=== PATIENT | male | born 1940 | race Caucasian/White ===

== ENCOUNTER 2019-03-14 16:03 | Emergency (ER) | payer OTHER ==
--- OUTSIDE RECORDS SUMMARY | 2019-03-14 16:07 | XMS REPORT ---
:1940 [facility] Organization [facility] Address [address] [place] [address] Dr. Raya [address] [place] [id number] Care Team Providers Name Role Phone Unavailable Unavailable Unavailable Problems This patient has no known problems. Allergies, Adverse Reactions, Alerts This patient has no known allergies or adverse reactions. Medications This patient has no known medications.
--- NOTE | 2019-03-14 16:39 | RAD REPORT ---
EXAM DESCRIPTION: Claudia Pa And Lat (2 Views)03/14/2019 4:32 pm CLINICAL HISTORY: Cough COMPARISON: 2018 FINDINGS: A pectus deformity. Mild left basilar opacities Right lung is clear. Heart is normal size IMPRESSION: Mild left basilar opacities probably pneumonia
[2019-03-14] MEDS ORDERED: IPRATROPIUM BROM 0.5MG/2.5ML ONE (17:12)
[2019-03-14] MEDS ORDERED: METHYLPREDNISOLONE 125 MG INJ ONE (17:12)
[2019-03-14] MEDS ORDERED: LEVALBUTEROL 1.25 MG/3 ML NEB ONE (17:12)
[2019-03-14 17:20] LABS: Absolute Lymphocytes (CBC) 1.2 K/uL (0.7-4.9); Basophils % 0.7 % (0-1.3); Hematocrit 46.3 % (39.6-49.0); Lymphocytes % 14.2 % (15.3-44.8); MPV 8.5 fL (7.6-11.3); RBC Red Blood Cell Count 5.15 M/uL (4.33-5.43)
[2019-03-14 17:34] LABS: Potassium 3.6 mmol/L (3.5-5.1)
--- NOTE | 2019-03-14 17:53 | EDPHYS ---
Physician Documentation [facility] Name: Nile Vazquez Age: 79 yrs Sex: Male : 1940 Arrival Date: 03/14/2019 Time: 16:07 Bed 7 Private MD: Hamzah Dutta R ED Physician Flaco Graham HPI: 03/14 16:38 This 79 yrs old Male presents to ER via Ambulatory with complaints of Cough, kb Breathing Difficulty. 16:38 Pt reports cough and congestion for 5 days. States he was seen by Dr Dutta on Tuesday kb and diagnosed with bronchitis, put on augmentin. Reports he has been coughing up a lot of yellow mucus and it sometimes clogs his airway and makes him have trouble breathing. . 16:40 The patient or guardian reports cough, that is intermittent, described as moderate, kb with productive sputum, that is yellow, difficulty breathing. Onset: The symptoms/episode began/occurred 5 day(s) ago. Severity of symptoms: At their worst the symptoms were moderate, in the emergency department the symptoms are unchanged. Modifying factors: The symptoms are alleviated by nothing, the symptoms are aggravated by nothing. Associated signs and symptoms: The patient has no apparent associated signs or symptoms. The patient has not experienced similar symptoms in the past. The patient has been recently seen by a physician: the patient's primary care provider, Dr. dutta. Historical: - Allergies: 16:13 No Known Allergies; jl7 - Home Meds: 16:13 None [Active]; jl7 - PMHx: 16:13 None; jl7 - PSHx: 16:13 None; jl7 - Immunization history:: Adult Immunizations up to date. - Social history:: Smoking status: Patient/guardian denies using tobacco. - Ebola Screening: : No symptoms or risks identified at this time. ROS: 16:40 Constitutional: Negative for fever, chills, and weight loss, ENT: Negative for injury, kb pain, and discharge, Neck: Negative for injury, pain, and swelling, Cardiovascular: Negative for chest pain, palpitations, and edema, Abdomen/GI: Negative for abdominal pain, nausea, vomiting, diarrhea, and constipation, Back: Negative for injury and pain, MS/Extremity: Negative for injury and deformity, Skin: Negative for injury, rash, and discoloration, Neuro: Negative for headache, weakness, numbness, tingling, and seizure. 16:40 Respiratory: Positive for cough, shortness of breath. Exam: 16:40 Constitutional: This is a well developed, well nourished patient who is awake, alert, kb and in no acute distress. Head/Face: Normocephalic, atraumatic. ENT: Nares patent. No nasal discharge, no septal abnormalities noted. Tympanic membranes are normal and external auditory canals are clear. Oropharynx with no redness, swelling, or masses, exudates, or evidence of obstruction, uvula midline. Mucous membranes moist. Neck: Trachea midline, no thyromegaly or masses palpated, and no cervical lymphadenopathy. Supple, full range of motion without nuchal rigidity, or vertebral point tenderness. No Meningismus. Chest/axilla: Normal chest wall appearance and motion. Nontender with no deformity. No lesions are appreciated. Cardiovascular: Regular rate and rhythm with a normal S1 and S2. No gallops, murmurs, or rubs. Normal PMI, no JVD. No pulse deficits. Abdomen/GI: Soft, non-tender, with normal bowel sounds. No distension or tympany. No guarding or rebound. No evidence of tenderness throughout. Back: No spinal tenderness. No costovertebral tenderness. Full range of motion. Skin: Warm, dry with normal turgor. Normal color with no rashes, no lesions, and no evidence of cellulitis. MS/ Extremity: Pulses equal, no cyanosis. Neurovascular intact. Full, normal range of motion. Neuro: Awake and alert, GCS 15, oriented to person, place, time, and situation. Cranial nerves II-XII grossly intact. Motor strength 5/5 in all extremities. Sensory grossly intact. Cerebellar exam normal. Normal gait. 16:40 Respiratory: the patient does not display signs of respiratory distress, Respirations: normal, Breath sounds: rhonchi, that are moderate, are located in both bases. Vital Signs: 16:13 BP 144 / 61; Pulse 85; Resp 16 S; Temp 98.2(O); Pulse Ox 96% on R/A; Weight 79.38 kg jl7 (R); Height 5 ft. 9 in. (175.26 cm) (R); Pain 0/10; 17:30 BP 138 / 61; Pulse 91; Resp 18; Temp 97.8; Pulse Ox 99% on Nebulizer Mask; ph 16:13 Body Mass Index 25.84 (79.38 kg, 175.26 cm) jl7 MDM: 16:15 Patient medically screened. kb 16:48 Data reviewed: vital signs, nurses notes. Data interpreted: Pulse oximetry: on room air kb is 96 %. Interpretation: normal. 17:51 Counseling: I had a detailed discussion with the patient and/or guardian regarding: the kb historical points, exam findings, and any diagnostic results supporting the discharge/admit diagnosis, lab results, radiology results, the need for outpatient follow up, a family practitioner, to return to the emergency department if symptoms worsen or persist or if there are any questions or concerns that arise at home. ED course: Rhonchi decreased markedly after treatment. Pt reports he is feeling fine. Will discharge home to follow up with Dr Dutta. Educated to return for worsening symptoms. 03/14 16:40 Order name: CBC with Diff; Complete Time: 17:23 kb 03/14 16:40 Order name: Basic Metabolic Panel; Complete Time: 17:34 kb 03/14 16:16 Order name: Chest Pa And Lat (2 Views) XRAY; Complete Time: 16:41 kb 03/14 16:40 Order name: Blood Culture Adult (2) kb 03/14 16:40 Order name: IV Start; Complete Time: 17:18 kb Administered Medications: 17:17 Drug: AtroVENT Aerosol 0.5 mg Route: Inhalation; ph 18:22 Follow up: Response: No adverse reaction ph 17:18 Drug: Xopenex (3) 1.25 mg Route: Inhalation; ph 18:22 Follow up: Response: No adverse reaction ph 17:18 Drug: SOLU-Medrol 125 mg Route: IVP; Site: right antecubital; ph 18:22 Follow up: Response: No adverse reaction ph 18:10 Drug: Rocephin 1 grams Route: IV; Rate: calculated rate; Site: right antecubital; ph 18:22 Follow up: Response: No adverse reaction; IV Status: Completed infusion ph 18:15 Drug: Zithromax 500 mg Route: PO; ph 18:23 Follow up: Response: No adverse reaction ph Disposition: 19:18 Co-signature as Attending Physician, Flaco Graham MD I agree with the assessment and kdr plan of care. Disposition: 03/14/19 17:52 Discharged to Home. Impression: Pneumonia, unspecified organism. - Condition is Stable. - Discharge Instructions: Community-Acquired Pneumonia, Adult, [id number]. - Prescriptions for Prednisone 20 mg Oral Tablet - take 1 tablet by ORAL route once daily for 5 days; 5 tablet. Albuterol Sulfate 90 mcg/actuation - inhale 1-2 puff by INHALATION route every 4-6 hours; 1 Inhaler. Zithromax 500 mg Oral Tablet - take 1 tablet by ORAL route once daily for 5 days; 5 tablet. - Medication Reconciliation Form, Thank You Letter, Antibiotic Education, Prescription Opioid Use, Work release form form. - Follow up: Emergency Department; When: As needed; Reason: Worsening of condition. Follow up: Hamzah Dutta MD; When: 2 - 3 days; Reason: Recheck today's complaints, Continuance of care, Re-evaluation by your physician. Signatures: Dispatcher [employer] EDMS Mandy Green, [employer] GRADER-C MILK AND CREAM GRADER-Ckb Flaco Graham MD MD [facility] Justyna Liriano, RN RN ph Hansel Dudley RN RN jl7 Corrections: (The following items were deleted from the chart) 18:26 17:52 03/14/2019 17:52 Discharged to Home. Impression: Pneumonia, unspecified organism. ph Condition is Stable. Forms are Work release form, Medication Reconciliation Form, Thank You Letter, Antibiotic Education, Prescription Opioid Use. Follow up: Emergency Department; When: As needed; Reason: Worsening of condition. Follow up: Hamzah Dutta; When: 2 - 3 days; Reason: Recheck today's complaints, Continuance of care, Re-evaluation by your physician. kb
--- NOTE | 2019-03-14 17:53 | ER ---
Nurse's Notes [facility] Name: Nile Vazquez Age: 79 yrs Sex: Male : 1940 Arrival Date: 03/14/2019 Time: 16:07 Bed 7 Private MD: Hamzah Dutta R Diagnosis: Pneumonia, unspecified organism Presentation: 03/14 16:11 Presenting complaint: states: He starts to cough and it's so bad he starts to not jl7 be able to breathe for the last 3 days, he's had about 8 episodes, dx with bronchitis on Tuesday. Transition of care: patient was not received from another setting of care. Onset of symptoms was March 11, 2019. Risk Assessment: Do you want to hurt yourself or someone else? Patient reports no desire to harm self or others. Initial Sepsis Screen: Does the patient meet any 2 criteria? No. Patient's initial sepsis screen is negative. Does the patient have a suspected source of infection? No. Patient's initial sepsis screen is negative. Care prior to arrival: None. 16:11 Method Of Arrival: Ambulatory [facility] 16:11 Acuity: PREET 3 jl7 Triage Assessment: 16:13 General: Appears in no apparent distress. uncomfortable, Behavior is calm, cooperative, jl7 appropriate for age. Pain: Denies pain. Respiratory: Reports cough that is productive, Airway is patent Respiratory effort is even, unlabored, Respiratory pattern is regular, symmetrical, Onset: The symptoms/episode began/occurred about a week, the patient has mild shortness of breath. Historical: - Allergies: 16:13 No Known Allergies; jl7 - Home Meds: 16:13 None [Active]; jl7 - PMHx: 16:13 None; jl7 - PSHx: 16:13 None; jl7 - Immunization history:: Adult Immunizations up to date. - Social history:: Smoking status: Patient/guardian denies using tobacco. - Ebola Screening: : No symptoms or risks identified at this time. Screenin:18 Abuse screen: Denies threats or abuse. Denies injuries from another. Nutritional ph screening: No deficits noted. 17:55 Tuberculosis screening: No symptoms or risk factors identified. Fall Risk None ph identified. Assessment: 17:00 General: Appears in no apparent distress. comfortable, slender, well groomed, Behavior ph is calm, cooperative, appropriate for age, Denies fever. Pain: Complains of pain in left lateral anterior chest. Neuro: Level of Consciousness is awake, alert, obeys commands, Oriented to person, place, time, situation. Cardiovascular: Capillary refill < 3 seconds in bilateral fingers Patient's skin is warm and dry. Respiratory: Reports shortness of breath at rest cough that is productive, pain with cough Airway is patent Respiratory effort is even, unlabored, Respiratory pattern is regular, symmetrical, Breath sounds are diminished in left posterior lower lobe. GI: Patient currently denies abdominal pain, diarrhea, nausea, vomiting. Derm: Skin is intact, Skin is pink, warm \T\ dry. Musculoskeletal: Circulation, motion, and sensation intact. Range of motion: intact in all extremities. 18:23 Reassessment: Patient appears in no apparent distress at this time. Patient and/or ph family updated on plan of care and expected duration. Pain level reassessed. Patient is alert, oriented x 3, equal unlabored respirations, skin warm/dry/pink. Pt d/c home w/ family. Vital Signs: 16:13 BP 144 / 61; Pulse 85; Resp 16 S; Temp 98.2(O); Pulse Ox 96% on R/A; Weight 79.38 kg jl7 (R); Height 5 ft. 9 in. (175.26 cm) (R); Pain 0/10; 17:30 BP 138 / 61; Pulse 91; Resp 18; Temp 97.8; Pulse Ox 99% on Nebulizer Mask; ph 16:13 Body Mass Index 25.84 (79.38 kg, 175.26 cm) jl7 ED Course: 16:07 Patient arrived in ED. mr 16:07 Hamzah Dutta MD is Private Physician. mr 16:12 Triage completed. jl7 16:13 Arm band placed on right wrist. jl7 16:15 Mandy Green [facility]-C [facility]. kb 16:15 Flaco Graham MD is Attending Physician. kb 16:32 Chest Pa And Lat (2 Views) XRAY In Process Unspecified. EDMS 16:51 Justyna Liriano, RN is Primary Nurse. ph 17:15 No provider procedures requiring assistance completed. Inserted saline lock: 20 gauge ph in right antecubital area, using aseptic technique. Blood collected. 17:52 Hamzah Dutta MD is Referral Physician. kb 17:53 Patient has correct armband on for positive identification. Bed in low position. Call ph light in reach. Side rails up X 1. Pulse ox on. NIBP on. Door closed. Noise minimized. Warm blanket given. 18:23 IV discontinued, intact, bleeding controlled, No redness/swelling at site. Pressure ph dressing applied. Administered Medications: 17:17 Drug: AtroVENT Aerosol 0.5 mg Route: Inhalation; ph 18:22 Follow up: Response: No adverse reaction ph 17:18 Drug: Xopenex (3) 1.25 mg Route: Inhalation; ph 18:22 Follow up: Response: No adverse reaction ph 17:18 Drug: SOLU-Medrol 125 mg Route: IVP; Site: right antecubital; ph 18:22 Follow up: Response: No adverse reaction ph 18:10 Drug: Rocephin 1 grams Route: IV; Rate: calculated rate; Site: right antecubital; ph 18:22 Follow up: Response: No adverse reaction; IV Status: Completed infusion ph 18:15 Drug: Zithromax 500 mg Route: PO; ph 18:23 Follow up: Response: No adverse reaction ph Outcome: 17:52 Discharge ordered by MD. kb 18:23 Discharged to home ambulatory, with family. ph 18:23 Condition: good 18:23 Discharge instructions given to patient, significant other, Instructed on discharge instructions, follow up and referral plans. medication usage, Demonstrated understanding of instructions, follow-up care, medications, Prescriptions given X 3. 18:26 Patient left the ED. ph Signatures: Dispatcher [employer] EDMS Mandy Green, SHANELLC FIRE REGULATOR-Tom Erin Red Justyna Liriano, RN RN ph Hansel Dudley RN RN jl7
[2019-03-14] MEDS ORDERED: CEFTRIAXONE/SWI 1gm 1 GM/10 ML SYR ONE (18:06)
[2019-03-14] MEDS ORDERED: AZITHROMYCIN 250 MG TAB ONE (18:06)
[2019-03-14 19:01] VITALS: BP 138/61; TEMP 97.8; O2SAT 99
== END 2019-03-14 18:26 | disposition home or self-care (01) ==
LOC: ER 16:03
DX: J18.9 Pneumonia, unspecified organism (principal)
CPT/HCPCS: 87040 ×2; 85025; 80048; 36415; 71046; 96375; 96374; 99284; J0696; J2930

== ENCOUNTER 2021-03-07 16:29 | Emergency (ER) | payer OTHER ==
--- OUTSIDE RECORDS SUMMARY | 2021-03-07 16:31 | XMS REPORT | Continuity of Care Document ---
:1940 Author Organization [facility] t Address [facility] Raya [address] [place] [id number] Care Team Providers Name Role Phone Unavailable Unavailable Unavailable Problems This patient has no known problems. Allergies, Adverse Reactions, Alerts This patient has no known allergies or adverse reactions. Medications This patient has no known medications. Procedures This patient has no known procedures. Results This patient has no known results.
--- NOTE | 2021-03-07 18:02 | RAD REPORT ---
EXAM DESCRIPTION: RAD - Chest Pa And Lat (2 Views) - 03/07/2021 5:26 pm CLINICAL HISTORY: Congestion;Cough COMPARISON: March 2019 TECHNIQUE: Frontal and lateral views of the chest were obtained. FINDINGS: The lungs are clear of an acute finding. Interstitial pattern matches comparison. Increase in density medial left base is believed be a combination of pericardial fat and deformity caused by a prominent pectus excavatum anomaly. Pattern matches comparison. Heart size is normal and central vasculature is within normal limits. No pleural effusion or pneu mothorax seen. No acute bony finding noted. No aortic abnormality. IMPRESSION: No acute cardiopulmonary process. No significant change from comparison study.
--- NOTE | 2021-03-07 18:39 | ER ---
Nurse's Notes [facility] Name: Nile Vazquez Age: 81 yrs Sex: Male : 1940 Arrival Date: 03/07/2021 Time: 16:30 Bed Treatment Private MD: Diagnosis: Bronchitis, not specified as acute or chronic;Acute upper respiratory infection, unspecified Presentation: 03/07 17:07 Chief complaint: Patient states: started off with sneezing and runny nose and then a iw cough, cough has been worse part , stated about 5 days ago, is coughing up yellow phlegm , Dr. Dutta called in abx for him yesterday (z-pack), has hx of respiratory problems, has diff breathing when he tries to sleep. Coronavirus screen: Client presents with at least one sign or symptom that may indicate coronavirus-19. Ebola Screen: Patient negative for fever greater than or equal to 101.5 degrees Fahrenheit, and additional compatible Ebola Virus Disease symptoms Patient denies exposure to infectious person. Patient denies travel to an Ebola-affected area in the 21 days before illness onset. No symptoms or risks identified at this time. Initial Sepsis Screen: Does the patient meet any 2 criteria? No. Patient's initial sepsis screen is negative. Does the patient have a suspected source of infection? No. Patient's initial sepsis screen is negative. Risk Assessment: Do you want to hurt yourself or someone else? Patient reports no desire to harm self or others. Onset of symptoms was March 01, 2021. 17:07 Method Of Arrival: Ambulatory iw 17:07 Acuity: PREET 3 iw 17:14 Acuity: PREET 4 iw Triage Assessment: 18:56 Respiratory: the patient has mild shortness of breath. al4 18:56 Respiratory: Onset: The symptoms/episode began/occurred about 5 days ago . al4 Historical: - Allergies: 17:09 No Known Allergies; iw - Home Meds: 17:09 None [Active]; iw - PMHx: 17:09 None; iw - PSHx: 17:09 None; iw - Immunization history:: Client reports receiving the 2nd dose of the Covid vaccine. - Social history:: Smoking status: Patient denies any tobacco usage or history of. Screenin:25 Abuse screen: Denies threats or abuse. Denies injuries from another. Nutritional iw screening: No deficits noted. Tuberculosis screening: No symptoms or risk factors identified. Fall Risk None identified. Assessment: 18:25 General: Appears in no apparent distress. Behavior is calm, cooperative. Pain: Denies iw pain. Neuro: Level of Consciousness is awake, alert, obeys commands, Oriented to person, place, time, situation, Moves all extremities. Full function. Cardiovascular: Rhythm is regular. Respiratory: Reports shortness of breath cough that is Airway is patent Respiratory effort is even, unlabored, Breath sounds are clear bilaterally. 18:56 General: Appears in no apparent distress. comfortable, Behavior is calm, cooperative. al4 Pain: Denies pain. Neuro: Level of Consciousness is awake, alert, obeys commands, Oriented to person, place, time, situation. Cardiovascular: Capillary refill < 3 seconds Patient's skin is warm and dry. Respiratory: Airway is patent Respiratory effort is even, unlabored, Respiratory pattern is regular, symmetrical. GI: No signs and/or symptoms were reported involving the gastrointestinal system. : No signs and/or symptoms were reported regarding the genitourinary system. EENT: No signs and/or symptoms were reported regarding the EENT system. Derm: No signs and/or symptoms reported regarding the dermatologic system. Musculoskeletal: No signs and/or symptoms reported regarding the musculoskeletal system. Vital Signs: 17:07 BP 157 / 82; Pulse 71; Resp 16; Temp 97.3; Pulse Ox 100% on R/A; iw ED Course: 16:30 Patient arrived in ED. ds1 17:09 Triage completed. iw 17:10 Arm band placed on. iw 17:24 Chest Pa And Lat (2 Views) XRAY In Process Unspecified. EDMS 18:17 Todd Wood MD is Attending Physician. angelo 18:25 Blanca Cunningham, [place] is Primary Nurse. iw 18:38 Hamzah Dutta MD is Referral Physician. angelo 18:56 Patient has correct armband on for positive identification. al4 19:31 No provider procedures requiring assistance completed. Patient did not have IV access al4 during this emergency room visit. Administered Medications: 18:56 Drug: Albuterol HFA Inhaler 2 puffs Route: Inhalation; al4 18:56 Follow up: Response: No adverse reaction al4 18:56 Drug: predniSONE 40 mg Route: PO; al4 18:56 Follow up: Response: No adverse reaction al4 Outcome: 18:38 Discharge ordered by . angelo 18:56 Patient left the ED. al4 18:56 Discharged to home ambulatory. al4 18:56 Condition: stable al4 18:56 Discharge instructions given to patient, family, Instructed on discharge instructions, follow up and referral plans. medication usage, Demonstrated understanding of instructions, follow-up care, medications. Signatures: Dispatcher [employer] EDTodd Garcia MD MD cha Sanford, Demi ds1 Blanca Cunningham RN RN Chance Aburto al4
--- NOTE | 2021-03-07 18:39 | EDPHYS ---
Physician Documentation [facility] – [place], [place] Name: Nile Vazquez Age: 81 yrs Sex: Male : 1940 Arrival Date: 03/07/2021 Time: 16:30 Bed Treatment Private MD: ED Physician Todd Wood HPI: 03/07 18:32 This 81 yrs old Male presents to ER via Ambulatory with complaints of Cough, angelo Shortness Of Breath. 18:32 The patient or guardian reports cough, described as mild, flu symptoms, arthralgias. angelo Onset: The symptoms/episode began/occurred 3 day(s) ago. Severity of symptoms: At their worst the symptoms were mild, in the emergency department the symptoms are unchanged. Modifying factors: The symptoms are alleviated by nothing, the symptoms are aggravated by nothing. Associated signs and symptoms: The patient has no apparent associated signs or symptoms. The patient has experienced a previous episode, last year. Historical: - Allergies: 17:09 No Known Allergies; iw - Home Meds: 17:09 None [Active]; iw - PMHx: 17:09 None; iw - PSHx: 17:09 None; iw - Immunization history:: Client reports receiving the 2nd dose of the Covid vaccine. - Social history:: Smoking status: Patient denies any tobacco usage or history of. ROS: 18:33 Constitutional: Negative for fever, chills, and weight loss, Eyes: Negative for injury, angelo pain, redness, and discharge, ENT: Negative for injury, pain, and discharge, Neck: Negative for injury, pain, and swelling, Cardiovascular: Negative for chest pain, palpitations, and edema, Abdomen/GI: Negative for abdominal pain, nausea, vomiting, diarrhea, and constipation, Back: Negative for injury and pain, : Negative for injury, bleeding, discharge, and swelling, MS/Extremity: Negative for injury and deformity, Skin: Negative for injury, rash, and discoloration, Neuro: Negative for headache, weakness, numbness, tingling, and seizure, Psych: Negative for depression, anxiety, suicide ideation, homicidal ideation, and hallucinations, Allergy/Immunology: Negative for hives, rash, and allergies, Endocrine: Negative for neck swelling, polydipsia, polyuria, polyphagia, and marked weight changes, Hematologic/Lymphatic: Negative for swollen nodes, abnormal bleeding, and unusual bruising. 18:33 Respiratory: Positive for cough, with no reported sputum. 18:33 MS/extremity: Negative for acute changes. Exam: 18:33 Constitutional: This is a well developed, well nourished patient who is awake, alert, angelo and in no acute distress. Head/Face: Normocephalic, atraumatic. Eyes: Pupils equal round and reactive to light, extra-ocular motions intact. Lids and lashes normal. Conjunctiva and sclera are non-icteric and not injected. Cornea within normal limits. Periorbital areas with no swelling, redness, or edema. ENT: Nares patent. No nasal discharge, no septal abnormalities noted. Tympanic membranes are normal and external auditory canals are clear. Oropharynx with no redness, swelling, or masses, exudates, or evidence of obstruction, uvula midline. Mucous membranes moist. Neck: Trachea midline, no thyromegaly or masses palpated, and no cervical lymphadenopathy. Supple, full range of motion without nuchal rigidity, or vertebral point tenderness. No Meningismus. Chest/axilla: Normal chest wall appearance and motion. Nontender with no deformity. No lesions are appreciated. Cardiovascular: Regular rate and rhythm with a normal S1 and S2. No gallops, murmurs, or rubs. Normal PMI, no JVD. No pulse deficits. Abdomen/GI: Soft, non-tender, with normal bowel sounds. No distension or tympany. No guarding or rebound. No evidence of tenderness throughout. Back: No spinal tenderness. No costovertebral tenderness. Full range of motion. Male : Normal genitalia with no discharge or lesions. Skin: Warm, dry with normal turgor. Normal color with no rashes, no lesions, and no evidence of cellulitis. MS/ Extremity: Pulses equal, no cyanosis. Neurovascular intact. Full, normal range of motion. Neuro: Awake and alert, GCS 15, oriented to person, place, time, and situation. Cranial nerves II-XII grossly intact. Motor strength 5/5 in all extremities. Sensory grossly intact. Cerebellar exam normal. Normal gait. Psych: Awake, alert, with orientation to person, place and time. Behavior, mood, and affect are within normal limits. 18:33 Cardiovascular: Rate: normal, Rhythm: regular, Pulses: Pulses are 4+ in bilateral radial, brachial, femoral, popliteal, posterior tibial and and dorsalis pedis arteries.. Heart sounds: normal, normal S1and S2, no S3 or S4, no murmur, no rub, no gallop, Edema: is not appreciated, JVD: is not appreciated. 18:33 Respiratory: the patient does not display signs of respiratory distress, Respirations: normal, Breath sounds: are clear throughout, Respiratory rate: 16 18:33 Musculoskeletal/extremity: DVT Exam: No signs of deep vein thrombosis. no pain, no swelling, no tenderness, negative Homans' sign noted on exam, no appreciated bluish discoloration, no erythema, no increased warmth. Vital Signs: 17:07 BP 157 / 82; Pulse 71; Resp 16; Temp 97.3; Pulse Ox 100% on R/A; iw MDM: 18:17 Patient medically screened. angelo 18:35 Differential Diagnosis: Bronchitis Influenza Upper Respiratory Infection Sinusitis angelo Pneumonia. Data reviewed: vital signs, nurses notes, lab test result(s), radiologic studies. Data interpreted: Pulse oximetry: on room air is 100 %. Test interpretation: by ED physician or midlevel provider: plain radiologic studies. 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 03/07 17:12 Order name: SARS-COV-2 RT PCR (Document "Date of Onset" if Symptomatic) iw 03/07 17:13 Order name: SARS-COV-2 RT PCR; Complete Time: 18:31 EDMS 03/07 17:11 Order name: Chest Pa And Lat (2 Views) XRAY; Complete Time: 18:17 iw Administered Medications: 18:56 Drug: Albuterol HFA Inhaler 2 puffs Route: Inhalation; al4 18:56 Follow up: Response: No adverse reaction al4 18:56 Drug: predniSONE 40 mg Route: PO; al4 18:56 Follow up: Response: No adverse reaction al4 Disposition Summary: 03/07/21 18:38 Discharge Ordered Location: Home angelo Problem: new angelo Symptoms: have improved angelo Condition: Stable angelo Diagnosis - Bronchitis, not specified as acute or chronic angelo - Acute upper respiratory infection, unspecified angelo Followup: angelo - With: Private Physician - When: 2 - 3 days - Reason: Recheck today's complaints, Continuance of care, Re-evaluation by your physician Followup: angelo - With: Hamzah Dutta MD - When: 2 - 3 days - Reason: Recheck today's complaints, Continuance of care, Re-evaluation by your physician Discharge Instructions: - Discharge Summary Sheet angelo - Acute Bronchitis, Adult angelo - Upper Respiratory Infection, Adult angelo - Cool Mist Vaporizer angelo - Upper Respiratory Infection, Adult, [id number] angelo - Cough, Adult angelo Forms: - Medication Reconciliation Form angelo - Thank You Letter angelo - Antibiotic Education angelo - Prescription Opioid Use [facility] [place] Prescriptions: - albuterol sulfate 90 mcg/actuation Inhalation HFA aerosol inhaler - inhale 2 puff by INHALATION route every 4-6 hours; 1 Pump; Refills: 0, Product angelo Selection Permitted - Medrol (Anthony) 4 mg Oral Tablets, Dose Pack - take 1 tablet by ORAL route as directed - follow package instructions; 1 angelo packet; Refills: 0, Product Selection Permitted - Guaifenesin AC 10-100 mg/5 mL Oral Liquid - take 7.5 milliliter by ORAL route every 6 hours As needed; 150 milliliter; angelo Refills: 0, Product Selection Permitted Signatures: Dispatcher [employer] Todd Watson MD MD cha Williams, Irene, RN RN iw Ledbetter, Alexis al4
[2021-03-07] MEDS ORDERED: predniSONE 20 MG TAB ONE (18:47)
[2021-03-07] MEDS ORDERED: ALBUTEROL INHALER 60 PUFF/8 GM IH ONE (18:48)
[2021-03-07 19:05] VITALS: BP 157/82; TEMP 97.3; O2SAT 100
== END 2021-03-07 18:56 | disposition home or self-care (01) ==
LOC: ER 16:29
DX: R05.9 Cough, unspecified (principal); J40 Bronchitis, not specified as acute or chronic; J06.9 Acute upper respiratory infection, unspecified; Z20.822 Contact with and (suspected) exposure to COVID-19
CPT/HCPCS: 71046; 99284; U0003; J7512

== ENCOUNTER 2023-11-11 11:51 | Emergency (ER) | payer OTHER ==
--- OUTSIDE RECORDS SUMMARY | 2023-11-11 11:53 | XMS REPORT | Continuity of Care Document ---
Author Name Unknown Address [address] [place] [address] [facility] [address] [place] [address] Care Team Providers Care Manager Real Estate Name Role Phone Unavailable Unavailable Unavailable Problems Condition Name Condition Details Condition Category Status Onset Date Resolution Date Last Treatment Date Treating Clinician Comments Source [id number] ED (erectile dysfunctio n) of organic origin Problem [facility] [id number] Simple renal cyst Problem [facility] Social History Social Habit Start Date Stop Date Quantity Comments Source History of Tobacco Use [facility] Sex Assigned At [facility] Smoking Status Start Date Stop Date Source Never Smoker [facility] Medications Ordered Medication Name Filled Medication Name Start Date Stop Date Current Medication? Ordering Clinician Indication Dosage Frequency Signature (SIG) Comments Components Source Tadalafil 20 MG Tadalafil 20 MG 07-14 00:00: 00 No Tadalafil 20 MG Vital Signs Vital Name Observation Time Observation Value Comments S ource weight 2022-07-14 08:45:00 174.4 [lb_av] Co [facility] temperature 2022-07-14 08:45:00 97.4 [degF] Com mon [facility] bmi 2022-07-14 08:45:00 25.75 kg/m2 Comm on [facility] oximetry 2022-07-14 08:45:00 99 % Commo n [facility] respiratory rate 2022-07-14 08:45:00 18 /min [facility] blood pressure systolic 2022-07-14 08:45:00 126 mm[Hg] [facility] blood pressure diastolic 2022-07-14 08:45:00 68 mm[Hg] [facility] height 2022-07-14 08:45:00 69 [in_i] Commo n [facility] Procedures Procedure Date / Time Performed Performing Clinicia n Source PVR 2022-07-14 00:00:00 [facility] Encounters Start Date/Time End Date/Time Encounter Type Admission Type Attending Clinicians Care Facility Care Department Encounter ID Source 2023-02-21 06:37:00 Outpatient [facility] [id number] [facility] 2022-07-14 08:11:01 Outpatient [facility] [id number] [facility] 2022-07-14 00:00:00 2022-07-14 00:00:00 OFFICE VISIT NEW PT LEVEL 3 [facility] [id number] [facility]
[2023-11-11] MEDS ORDERED: FENTANYL CITR 100 MCG/2 ML ONE (12:19)
[2023-11-11] MEDS ORDERED: ONDANSETRON 4 MG/2 ML VIAL ONE (12:19)
[2023-11-11] MEDS ORDERED: NA CHLORIDE 0.9% 500 ML ONE (12:20)
[2023-11-11] MEDS ORDERED: NA CHLORIDE 0.9% 1,000 ML ONE (13:24)
--- NOTE | 2023-11-11 13:24 | RAD REPORT ---
EXAM DESCRIPTION: RADChest Single View11/11/2023 12:54 pm CLINICAL HISTORY: COUGH COMPARISON: Chest Pa And Lat (2 Views) dated 03/07/2021; Chest Pa And Lat (2 Views) dated 03/14/2019; Ab domen 1 View (KUB) dated 01/16/2019; Abdomen 1 View (KUB) dated 01/04/2018; Abdomen Pelvis W/Wo Con trast dated 06/21/2022 TECHNIQUE: Portable AP view of the chest. FINDINGS: The lungs are clear, apart from stable left basilar atelectasis. No pneumothorax or effus ion. The cardiomediastinal contours are unremarkable. IMPRESSION: No acute cardiopulmonary process.
[2023-11-11 13:32] LABS: Absolute Basophils 0.1 K/uL (0-0.5); Absolute Eosinophils 0.1 K/uL (0-0.5); Absolute Lymphocytes (CBC) 1.3 K/uL (0.7-4.9); Absolute Monocytes 0.8 K/uL (0.1-1.3); Basophils % 0.6 % (0-1.3); Eosinophils % 0.9 % (0-4.4); Hematocrit 48.2 % (39.6-49.0); Hemoglobin 15.8 g/dL (13.6-17.9); Lymphocytes % 14.2 % (15.3-44.8); MCH 30.5 pg (27.0-35.0); MCHC 32.7 g/dL (32.0-36.0); MCV 93.4 fL (80-100); MPV 8.4 fL (7.6-11.3); Monocytes % 8.7 % (3.3-12.3); Neutrophils % 75.6 % (41.7-73.7); Platelets 232 thou/uL (152-406); RBC Red Blood Cell Count 5.17 M/uL (4.33-5.43); Red Cell Distribution Width 13.2 % (12.1-15.2)
[2023-11-11 13:34] LABS: Specific Gravity > 1.030 (1.005-1.030); Sqamous Epithelial <5 /HPF (None Seen); Urine Bacteria None Seen /HPF (<20); Urine Bilirubin NEGATIVE (Negative); Urine Blood Negative (Negative); Urine Clarity Clear (Clear); Urine Color Yellow (Yellow); Urine Culture Reflex Order NOT NEEDED; Urine Glucose NEGATIVE (Negative); Urine Ketones NEGATIVE (Negative); Urine Microscopic Reflex YN ORDER UMIC; Urine Mucus Slight /HPF (None Seen); Urine Nitrite NEGATIVE (Negative); Urine Protein TRACE (Negative); Urine RBC <5 /HPF (None Seen); Urine Urobilinogen Normal (Normal); Urine WBC <5 /HPF (<5)
[2023-11-11 13:38] LABS: PT Prothrombin Time 12.4 SECONDS (9.4-12.5); Protime INR 1.11
[2023-11-11 13:52] LABS: Albumin 3.5 g/dL (3.4-5.0); Albumin/Globulin Ratio 0.9 (1.1-1.8); Anion Gap 7.1 mEq/L (5.0-15.0); Bilirubin Direct 0.2 mg/dL (0-0.2); Bilirubin Indirect, Calculated 0.5 mg/dL (0.2-0.8); Bilirubin Total 0.7 mg/dL (0.2-1.0); Globulin 3.7 g/dL (2.3-3.5); Potassium 4.1 mEq/L (3.5-5.1); Protein, Total 7.2 g/dL (6.4-8.2); Troponin High Sensitivity 4.8 pg/mL (<58.9)
--- NOTE | 2023-11-11 15:44 | RAD REPORT ---
EXAM DESCRIPTION: CT - Abdomen Pelvis W Contrast - 11/11/2023 2:16 pm CLINICAL HISTORY: ABD PAIN COMPARISON: Abdomen Pelvis W Contrast dated 10/27/2015; CT ABD PELVIS W CONTRAST dated 10/15/2013; A bdomen Pelvis W/Wo Contrast dated 06/21/2022 TECHNIQUE: Thin cut axial CT imaging of the abdomen and pelvis was performed following intravenous a dministration of iodinated contrast. Multiplanar reformats were generated and reviewed. All CT scans are performed using dose optimization technique as appropriate and may include automated exposure control or mA/KV adjustment according to patient size. FINDINGS: No suspicious findings in the lung bases. In the on appearance of the lower sternum/xiphoi d, suggesting pectus carinatum. The liver shows stable small fluid density parenchymal lesions, largest in the left lobe measuring 1 cm, not well characterized. Adrenal glands, spleen, and pancreas show no suspicious findings. Gallbla dder and biliary tree are also without suspicious finding, apart from a 3 millimeter calculus versus calcified polyp along the anterior gallbladder wall near the fundus. Symmetric renal function is seen with no hydronephrosis or suspicious renal mass. Larger exophytic le ft renal 13.3 cm cyst and other smaller sub centimeter cortical cysts bilaterally, benign in appearan ce. Nonobstructing right lower pole 5 mm calculus. No dilated bowel loops or bowel wall thickening. No free air, free fluid or fluid collections. Ovoid focus of fat measuring 3.3 cm adjacent to the descending colon, with adjacent fat stranding, suggesti ng sequelae of epiploic appendagitis or omental infarct. Distal colonic diverticulosis without eviden ce of acute diverticulitis. No hernia, mass or bulky lymphadenopathy. Mild prostatomegaly. The urinar y bladder is without significant finding. No suspicious bony findings. IMPRESSION: Focus of macroscopic fat in the left flank with adjacent fat stranding, suggesting seque lae of epiploic appendagitis or omental infarct. Nonobstructing right lower renal pole 5 mm calculus. Dominant left lower renal pole 13.3 cm cyst, without suspicious features. Other incidental findings as above.
--- NOTE | 2023-11-11 16:04 | ER ---
Nurse's Notes [facility] Name: Nile Vazquez Age: 83 yrs Sex: Male : 1940 Arrival Date: 11/11/2023 Time: 11:51 Bed 11 Private MD: Diagnosis: Abdominal tenderness;Abnormal findings on diagnostic imaging of other abdominal regions, including retroperitoneum-epiploic appendagitis Presentation: 11/10 12:41 Chief complaint: Patient states: Left flank pain X 3 days. Coronavirus screen: At this ld1 time, the client does not indicate any symptoms associated with coronavirus-19. Ebola Screen: No symptoms or risks identified at this time. Initial Sepsis Screen: Does the patient meet any 2 criteria? No. Patient's initial sepsis screen is negative. Does the patient have a suspected source of infection? No. Patient's initial sepsis screen is negative. Risk Assessment: Do you want to hurt yourself or someone else? Patient reports no desire to harm self or others. Onset of symptoms was November 11, 2023 at 12:42. 12:41 Method Of Arrival: Ambulatory ld1 12:41 Acuity: PREET 3 ld1 Triage Assessment: 12:41 General: Appears in no apparent distress. comfortable, Behavior is calm, cooperative, ld1 appropriate for age. Pain: Complains of pain in left low back Pain does not radiate. Pain currently is 7 out of 10 on a pain scale. Quality of pain is described as throbbing, Pain began suddenly. EENT: No signs and/or symptoms were reported regarding the EENT system. Neuro: Level of Consciousness is awake, alert, obeys commands, Oriented to person, place, time, situation, Appropriate for age. Cardiovascular: Capillary refill < 3 seconds Patient's skin is warm and dry. Respiratory: Airway is patent Respiratory effort is even, unlabored. GI: Abdomen is round non-distended. : No signs and/or symptoms were reported regarding the genitourinary system. Reports pain in left flank(s). Historical: - Allergies: 12:41 No Known Allergies; ld1 - Home Meds: 12:41 None [Active]; ld1 - PMHx: 12:41 None; ld1 - PSHx: 12:41 None; ld1 - Immunization history:: Adult Immunizations up to date. - Infectious Disease History:: Denies. - Social history:: Smoking status: Patient denies any tobacco usage or history of. - Family history:: not pertinent. Screenin:45 [facility] ED Fall Risk Assessment (Adult) History of falling in the last 3 months, ar6 including since admission No falls in past 3 months (0 pts) Confusion or Disorientation No (0 pts) Intoxicated or Sedated No (0 pts) Impaired Gait No (0 pts) Mobility Assist Device Used No (0 pt) Altered Elimination No (0 pt) Score/Fall Risk Level 0 - 2 = Low Risk Oriented to surroundings, Maintained a safe environment, Educated pt \T\ family on fall prevention, incl call for assistance when getting out of bed, Hourly rounding (assess needs \T\ fall precautionary measures) done. Abuse screen: Denies threats or abuse. Denies injuries from another. Nutritional screening: No deficits noted. Tuberculosis screening: No symptoms or risk factors identified. Assessment: 13:25 General: Appears in no apparent distress. comfortable, Behavior is calm, cooperative, ar6 appropriate for age. Pain: Denies pain. Neuro: Level of Consciousness is awake, alert, obeys commands, Oriented to person, place, time, situation. Cardiovascular: Capillary refill < 3 seconds Chest pain is denied. Respiratory: Airway is patent. GI: Bowel sounds present X 4 quads. Abd is soft X 4 quads Abdomen is tender to palpation left side. : Urine is cloudy, Denies urinary frequency. EENT: Oral mucosa is moist. Derm: Skin is intact, is healthy with good turgor, Skin is dry, Skin is pink, warm \T\ dry. Skin temperature is warm. Musculoskeletal: No signs and/or symptoms reported regarding the musculoskeletal system. 16:37 Reassessment: pending d/c due to iv medications. ar6 Vital Signs: 12:41 BP 149 / 76; Pulse 67; Resp 18; Temp 98.1(TE); Pulse Ox 97% on R/A; Weight 77.11 kg; ld1 Height 5 ft. 9 in. ; Pain 7/10; 13:25 BP 145 / 67; Pulse 77; Resp 18; Pulse Ox 100% on R/A; Pain 0/10; ar6 14:03 BP 154 / 69; Pulse 57; Resp 16; Pulse Ox 100% on R/A; Pain 0/10; ar6 15:00 BP 138 / 66; Pulse 64; Resp 17; Pulse Ox 100% on R/A; Pain 0/10; ar6 18:38 BP 136 / 64; Pulse 71; Resp 18; Pulse Ox 100% on R/A; ar6 12:41 Body Mass Index 25.10 (77.11 kg, 175.26 cm) ld1 12:41 Pain Scale: Adult ld1 13:25 Pain Scale: Adult ar6 14:03 Pain Scale: Adult ar6 15:00 Pain Scale: Adult ar6 Vitals: 13:25 Cardiac Rhythm Assessment Regular. ar6 ED Course: 11:56 Patient arrived in ED. mr 11:57 Todd Wood MD is Attending Physician. angelo 12:12 Triage completed. rs5 12:41 Arm band placed on right wrist. ld1 12:56 XRAY Chest (1 view) In Process Unspecified. EDMS 12:57 Huma Wright, RN is Primary Nurse. ar6 13:00 No apparent distress. Awaiting lab results, Awaiting radiology results. ar6 13:00 Patient has correct armband on for positive identification. Bed in low position. Call ar6 light in reach. Side rails up X2. 13:00 Provided Education on: iv fluids, call light. Client placed on continuous cardiac and ar6 pulse oximetry monitoring. NIBP monitoring applied. 13:00 No provider procedures requiring assistance completed. Inserted saline lock: 20 gauge ar6 in right antecubital area, using aseptic technique. Blood collected. Flushed with 10 mL NS. 13:17 Urinalysis w/ reflexes Sent. ar6 13:24 Basic Metabolic Panel Sent. ar6 13:24 CBC with Diff Sent. ar6 13:24 LFT's Sent. ar6 13:24 Magnesium Sent. ar6 13:24 NT PRO-BNP Sent. ar6 13:24 PT-INR Sent. ar6 13:24 Troponin HS Sent. ar6 13:40 EKG done, by ED staff, reviewed by Todd Wood MD. zm 14:18 CT Abd/Pelvis - IV Contrast Only In Process Unspecified. EDMS 16:00 Miguel Keene MD is Referral Physician. [facility] 16:00 Senthil Johnson MD is Referral Physician. angelo 18:37 IV discontinued, intact, bleeding controlled, No redness/swelling at site. Pressure ar6 dressing applied. Administered Medications: 13:24 Not Given (Patient Refused): fentanyl (pf)25 mcg IVP once ar6 13:24 Not Given (Patient Refused): fentanyl (pf)25 mcg IVP once ar6 13:24 Not Given (Patient Refused): ondansetron 4 mg IVP once; over 2 minutes ar6 13:26 Drug: NS 0.9% IV 500 ml IV at bolus once Route: IV; Rate: bolus; Site: right ar6 antecubital; 14:03 Follow up: BP 154 / 69; Pulse 57 bpm; Resp 16 bpm; Pulse Ox 100% RA; Pain 0/10 Adult; ar6 Response: No adverse reaction; IV Status: Completed infusion; IV Intake: 500ml 16:09 Drug: Rocephin IV 2 grams IV at per protocol once; Given slow IV push per pharmarcy ar6 instructions Route: IV; Rate: per protocol; Site: right antecubital; 18:36 Follow up: Response: No adverse reaction; IV Status: Completed infusion ar6 16:09 Drug: metroNIDAZOLE IVPB 500 mg 100 ml IVPB at 200 ml/hr once over 30 mins Volume: 100 ar6 ml; Route: IVPB; Rate: 200 ml/hr; Infused Over: 30 mins; Site: right antecubital; 16:30 Follow up: Response: No adverse reaction; IV Status: Completed infusion; IV Intake: ar6 100ml 16:56 Drug: Ciprofloxacin IVPB 400 mg 200 ml IVPB once over 60 mins Volume: 200 ml; Route: ar6 IVPB; Infused Over: 60 mins; Site: right antecubital; 18:36 Follow up: Response: No adverse reaction; IV Status: Completed infusion; IV Intake: ar6 200ml Medication: 13:25 VIS not applicable for this client. ar6 Intake: 14:03 IV: 500ml; Total: 500ml. ar6 16:30 IV: 100ml; Total: 600ml. ar6 18:36 IV: 200ml; Total: 800ml. ar6 Outcome: 16:04 Discharge ordered by . angelo 18:36 Discharged to home ambulatory, ar6 18:36 Condition: good 18:36 Discharge instructions given to patient, significant other, Instructed on discharge instructions, follow up and referral plans. medication usage, Demonstrated understanding of instructions, follow-up care, medications, Prescriptions given X x5 18:37 Patient left the ED. ar6 Signatures: Dispatcher [employer] EDMS Todd Wood MD MD cha Rivera, Mary, Reg Reg mr Brizuela Concha, RN RN aa5 Saskia Torres, RN RN ld1 Michelle Chicas Ricky, RN RN rs5 Huma Wright RN RN ar6 Corrections: (The following items were deleted from the chart) 12:17 12:11 Chief complaint: EMS states: Home health nurse toned out EMS for abdominal pain rs5 rs5 12:35 12:25 Inserted saline lock: 20 gauge in right forearm, using aseptic technique. Blood aa5 collected. Flushed with 10 mL NS aa5 12:35 12:25 Initial lab(s) drawn, by me, sent to lab. aa5 aa5 12:38 12:11 Coronavirus screen: At this time, the client does not indicate any symptoms rs5 associated with coronavirus-19. rs5 12:38 12:11 Ebola Screen: No symptoms or risks identified at this time. rs5 rs5 12:38 12:11 Initial Sepsis Screen: Does the patient meet any 2 criteria? RR > 20 per min. HR rs5 > 90 bpm. Yes Does the patient have a suspected source of infection? No. Patient's initial sepsis screen is negative. rs5 12:38 12:11 Risk Assessment: Do you want to hurt yourself or someone else? Patient reports no rs5 desire to harm self or others. rs5 12:38 12:11 Onset of symptoms was November 11, 2023 rs5 rs5 12:38 12:11 Care prior to arrival: IV initiated. 20 GA, in the left forearm, rs5 rs5 12:38 12:11 Chief complaint: EMS states: Home health nurse toned out EMS for abdominal pain rs5 and redness in urine rs5 12:38 12:11 Method Of Arrival: EMS: [facility] rs5 rs5 12:38 12:11 BP 120 / 77; Pulse 96bpm; Resp 22bpm; Pulse Ox 98% RA; Temp 98.5F; rs5 rs5 12:38 12:11 Acuity: PREET 3 rs5 rs5 12:38 12:12 Allergies: No Known Allergies; rs5 rs5 : 12:12 PMHx: Parkinson's disease; rs5 rs5 12:38 12:12 PSHx: None; rs5 rs5 12:38 12:12 Immunization history: Adult Immunizations up to date, rs5 rs5 12:38 12:12 Infectious Disease History: Denies. rs5 rs5 12:38 12:12 Social history: Smoking status: Patient denies any tobacco usage or history of. rs5 rs5 12:38 12:12 General: Appears in no apparent distress. uncomfortable, Behavior is cooperative, rs5 rs5 12:38 12:12 Pain: Complains of pain in abdomen Pain radiates to right flank Pain currently is rs5 8 out of 10 on a pain scale. Quality of pain is described as aching, Is continuous, rs5 12:38 12:12 EENT: No signs and/or symptoms were reported regarding the EENT system. rs5 rs5 12: 12:12 Neuro: Level of Consciousness is awake, alert, obeys commands, Oriented to rs5 person, place, time, situation, rs5 12:38 12:12 Cardiovascular: Patient's skin is warm and dry. rs5 rs5 12:38 12:12 Respiratory: Airway is patent Respiratory effort is even, unlabored, Respiratory rs5 pattern is symmetrical, hyperventilation rs5 12:38 12:12 GI: Abdomen is round non-distended, Abd is soft and non tender rs5 rs5 12:38 12:12 : No signs and/or symptoms were reported regarding the genitourinary system. rs5rs5 12:38 12:12 Derm: Skin is intact, Skin is pink, warm \T\ dry. rs5 rs5 12:38 12:12 Musculoskeletal: Range of motion: limited in lower extremitities bilat Swelling rs5 present in right foot and left foot rs5 12:38 12:14 Patient has correct armband on for positive identification. Placed in gown. Bed rs5 in low position. Call light in reach. Side rails up X2. rs5 12:38 12:15 VIS not applicable for this client. rs5 rs5 12:39 12:10 Richy Cornelius, RN is Primary Nurse. rs5 rs5 12:39 12:14 [facility] ED Fall Risk Assessment (Adult) History of falling in the last 3 months, rs5 including since admission No falls in past 3 months (0 pts) Confusion or Disorientation No (0 pts) Intoxicated or Sedated No (0 pts) Impaired Gait Yes (1 pt) Mobility Assist Device Used Yes (1 pt) Altered Elimination No (0 pt) Score/Fall Risk Level 0 - 2 = Low Risk Oriented to surroundings, Maintained a safe environment, rs5 12:39 12:14 Abuse screen: Denies threats or abuse. rs5 rs5 12:39 12:14 Nutritional screening: No deficits noted. rs5 rs5 12:39 12:14 Tuberculosis screening: No symptoms or risk factors identified. rs5 rs5 12:39 12:14 No provider procedures requiring assistance completed. rs5 rs5 16:09 16:09 Ciprofloxacin IVPB 400 mg 200 ml IVPB in right antecubital over 60 mins ar6 ar6
--- NOTE | 2023-11-11 16:04 | EDPHYS ---
Physician Documentation [facility] Name: Nile Vazquez Age: 83 yrs Sex: Male : 1940 Arrival Date: 11/11/2023 Time: 11:51 Bed 11 Private MD: ED Physician Todd Wood HPI: 11/10 15:55 This 83 yrs old Male presents to ER via Ambulatory with complaints of angelo Abdominal Pain. 15:55 The patient presents with abdominal pain in the left upper quadrant, in the left lower angelo quadrant, abdominal distention in the upper abdomen, in the lower abdomen. Onset: The symptoms/episode began/occurred 2 day(s) ago. The patient complains of pain in the left low back and left mid back. The pain does not radiate. Onset: The symptoms/episode began/occurred 3 day(s) ago. Modifying factors: The symptoms are alleviated by nothing. Associated signs and symptoms: The patient has no apparent associated signs or symptoms. The symptoms do not radiate. The symptoms are described as crampy. Modifying factors: The symptoms are alleviated by remaining still, the symptoms are aggravated by movement, pressure. Severity of pain: At its worst the pain was moderate in the emergency department the pain is unchanged. The patient has not experienced similar symptoms in the past. Historical: - Allergies: 12:41 No Known Allergies; ld1 - Home Meds: 12:41 None [Active]; ld1 - PMHx: 12:41 None; ld1 - PSHx: 12:41 None; ld1 - Immunization history:: Adult Immunizations up to date. - Infectious Disease History:: Denies. - Social history:: Smoking status: Patient denies any tobacco usage or history of. - Family history:: not pertinent. ROS: 15:55 Constitutional: Negative for fever, chills, and weight loss, Eyes: Negative for injury, angelo pain, redness, and discharge, ENT: Negative for injury, pain, and discharge, Neck: Negative for injury, pain, and swelling, Cardiovascular: Negative for chest pain, palpitations, and edema, Respiratory: Negative for shortness of breath, cough, wheezing, and pleuritic chest pain, : Negative for injury, bleeding, discharge, and swelling, MS/Extremity: Negative for injury and deformity, Skin: Negative for injury, rash, and discoloration, Neuro: Negative for headache, weakness, numbness, tingling, and seizure, Psych: Negative for depression, anxiety, suicide ideation, homicidal ideation, and hallucinations, Allergy/Immunology: Negative for hives, rash, and allergies, Endocrine: Negative for neck swelling, polydipsia, polyuria, polyphagia, and marked weight changes, Hematologic/Lymphatic: Negative for swollen nodes, abnormal bleeding, and unusual bruising, 15:55 Abdomen/GI: Positive for abdominal pain, abdominal cramps, abdominal distension, of the anterior aspect of left lateral abdomen, posterior aspect of left lateral abdomen, left upper quadrant and left lower quadrant, Exam: 15:55 Constitutional: This is a well developed, well nourished patient who is awake, alert, angelo and in no acute distress. Head/Face: Normocephalic, atraumatic. Eyes: Pupils equal round and reactive to light, extra-ocular motions intact. Lids and lashes normal. Conjunctiva and sclera are non-icteric and not injected. Cornea within normal limits. Periorbital areas with no swelling, redness, or edema. ENT: Nares patent. No nasal discharge, no septal abnormalities noted. Tympanic membranes are normal and external auditory canals are clear. Oropharynx with no redness, swelling, or masses, exudates, or evidence of obstruction, uvula midline. Mucous membranes moist. Neck: Trachea midline, no thyromegaly or masses palpated, and no cervical lymphadenopathy. Supple, full range of motion without nuchal rigidity, or vertebral point tenderness. No Meningismus. Chest/axilla: Normal chest wall appearance and motion. Nontender with no deformity. No lesions are appreciated. Cardiovascular: Regular rate and rhythm with a normal S1 and S2. No gallops, murmurs, or rubs. Normal PMI, no JVD. No pulse deficits. Respiratory: Lungs have equal breath sounds bilaterally, clear to auscultation and percussion. No rales, rhonchi or wheezes noted. No increased work of breathing, no retractions or nasal flaring. Male : Normal genitalia with no discharge or lesions. Skin: Warm, dry with normal turgor. Normal color with no rashes, no lesions, and no evidence of cellulitis. MS/ Extremity: Pulses equal, no cyanosis. Neurovascular intact. Full, normal range of motion. Neuro: Awake and alert, GCS 15, oriented to person, place, time, and situation. Cranial nerves II-XII grossly intact. Motor strength 5/5 in all extremities. Sensory grossly intact. Cerebellar exam normal. Normal gait. Psych: Awake, alert, with orientation to person, place and time. Behavior, mood, and affect are within normal limits. 15:55 Abdomen/GI: Inspection: distension, that is mild, Bowel sounds: normal, Palpation: mild abdominal tenderness, in the anterior aspect of left lateral abdomen, posterior aspect of left lateral abdomen, left upper quadrant and left lower quadrant, Liver: no appreciated palpable abnormalities, Hernia: not appreciated, 15:55 Skin: Exam negative for abrasion, abscess, acute changes, lesions, pallor, petechiae, Vital Signs: 12:41 BP 149 / 76; Pulse 67; Resp 18; Temp 98.1(TE); Pulse Ox 97% on R/A; Weight 77.11 kg; ld1 Height 5 ft. 9 in. ; Pain 7/10; 13:25 BP 145 / 67; Pulse 77; Resp 18; Pulse Ox 100% on R/A; Pain 0/10; ar6 14:03 BP 154 / 69; Pulse 57; Resp 16; Pulse Ox 100% on R/A; Pain 0/10; ar6 15:00 BP 138 / 66; Pulse 64; Resp 17; Pulse Ox 100% on R/A; Pain 0/10; ar6 18:38 BP 136 / 64; Pulse 71; Resp 18; Pulse Ox 100% on R/A; ar6 12:41 Body Mass Index 25.10 (77.11 kg, 175.26 cm) ld1 12:41 Pain Scale: Adult ld1 13:25 Pain Scale: Adult ar6 14:03 Pain Scale: Adult ar6 15:00 Pain Scale: Adult ar6 MDM: 11:57 Patient medically screened. angelo 15:58 Differential diagnosis: nephrolithiasis, pyelonephritis, UTI, diverticulitis, angelo pancreatitis, AAA, bowel obstruction, diverticulitis, gastritis, Mesenteric ischemia or infarction, non-specific abd pain, pancreatitis, Peptic Ulcer Disease, Peritonitis, urinary tract infection. Data reviewed: vital signs, nurses notes, lab test result(s), EKG, radiologic studies, CT scan, plain films. Consideration of Admission/Observation Escalation of care including admission/observation considered. I considered the following discharge prescriptions or medication management in the emergency department Medications were administered in the Emergency Department. See MAR. Independent interpretation of the following test(s) in the Emergency Department EKG: See my EKG interpretation above. Test considered but Not performed: Ultrasound no abd usg. Historians other than the Patient: Spouse/Significant Other: well informed. Care significantly affected by the following chronic conditions: Hypertension, Obesity. Counseling: I had a detailed discussion with the patient and/or guardian regarding the historical points, exam findings, and any diagnostic results supporting the discharge/admit diagnosis, lab results, radiology results, the need for outpatient follow up, for definitive care, a family practitioner, a general surgeon. 11/10 11:59 Order name: Basic Metabolic Panel; Complete Time: 15:35 [facility] 11/10 11:59 Order name: CBC with Diff; Complete Time: 13:48 [facility] 11/10 11:59 Order name: LFT's; Complete Time: 15:35 [facility] 11/10 11:59 Order name: Magnesium; Complete Time: 15:35 [facility] 11/10 11:59 Order name: NT PRO-BNP; Complete Time: 15:35 [facility] 11/10 11:59 Order name: PT-INR; Complete Time: 13:48 [facility] 11/10 11:59 Order name: Troponin HS; Complete Time: 15:35 [facility] 11/10 11:59 Order name: Lipase; Complete Time: 15:35 [facility] 11/10 11:59 Order name: Urinalysis w/ reflexes; Complete Time: 13:48 [facility] 11/10 11:59 Order name: XRAY Chest (1 view); Complete Time: 13:48 [facility] 11/10 11:59 Order name: CT Abd/Pelvis - IV Contrast Only; Complete Time: 15:44 [facility] 11/10 11:59 Order name: Cardiac monitoring; Complete Time: 12:19 [facility] 11/10 11:59 Order name: EKG - Nurse/Tech; Complete Time: 12:29 [facility] 11/10 11:59 Order name: IV Saline Lock; Complete Time: 12:29 [facility] 11/10 11:59 Order name: Labs collected and sent; Complete Time: 12:29 [facility] 11/10 11:59 Order name: O2 Per Protocol; Complete Time: 12:19 [facility] 11/10 11:59 Order name: O2 Sat Monitoring; Complete Time: 12:19 angelo Administered Medications: 13:24 Not Given (Patient Refused): fentanyl (pf)25 mcg IVP once ar6 13:24 Not Given (Patient Refused): fentanyl (pf)25 mcg IVP once ar6 13:24 Not Given (Patient Refused): ondansetron 4 mg IVP once; over 2 minutes ar6 13:26 Drug: NS 0.9% IV 500 ml IV at bolus once Route: IV; Rate: bolus; Site: right ar6 antecubital; 14:03 Follow up: BP 154 / 69; Pulse 57 bpm; Resp 16 bpm; Pulse Ox 100% RA; Pain 0/10 Adult; ar6 Response: No adverse reaction; IV Status: Completed infusion; IV Intake: 500ml 16:09 Drug: Rocephin IV 2 grams IV at per protocol once; Given slow IV push per pharmarcy ar6 instructions Route: IV; Rate: per protocol; Site: right antecubital; 18:36 Follow up: Response: No adverse reaction; IV Status: Completed infusion ar6 16:09 Drug: metroNIDAZOLE IVPB 500 mg 100 ml IVPB at 200 ml/hr once over 30 mins Volume: 100 ar6 ml; Route: IVPB; Rate: 200 ml/hr; Infused Over: 30 mins; Site: right antecubital; 16:30 Follow up: Response: No adverse reaction; IV Status: Completed infusion; IV Intake: ar6 100ml 16:56 Drug: Ciprofloxacin IVPB 400 mg 200 ml IVPB once over 60 mins Volume: 200 ml; Route: ar6 IVPB; Infused Over: 60 mins; Site: right antecubital; 18:36 Follow up: Response: No adverse reaction; IV Status: Completed infusion; IV Intake: ar6 200ml Disposition Summary: 11/11/23 16:04 Discharge Ordered Notes: Location: Home angelo Problem: new angelo Symptoms: have improved angelo Condition: Stable angelo Diagnosis - Abdominal tenderness angelo - Abnormal findings on diagnostic imaging of other abdominal regions, including angelo retroperitoneum - epiploic appendagitis Followup: angelo - With: Private Physician - When: 2 - 3 days - Reason: Recheck today's complaints, Continuance of care, Re-evaluation by your physician Followup: angelo - With: Miguel Keene MD - When: 2 - 3 days - Reason: Recheck today's complaints, Re-evaluation by your physician Followup: angelo - With: Senthil Johnson MD - When: 2 - 3 days - Reason: Recheck today's complaints, Re-evaluation by your physician Discharge Instructions: - Discharge Summary Sheet angelo - Abdominal Pain, Adult angelo - Abdominal Pain, Adult, [id number] [facility] - Epiploic Appendagitis [facility] Forms: - Medication Reconciliation Form [facility] - Antibiotic Education angelo - Prescription Opioid Use [facility] - Patient Portal Instructions [facility] - Leadership Thank You Letter [facility] Prescriptions: - ondansetron 4 mg Oral Tablet,disintegrating - take 1 tablet ORAL route every 8 hours for 5 days; 20 tablet; Refills: 0, [facility] Product Selection Permitted - Colace 100 mg Oral Tablet - take 1 tablet ORAL route every 12 hours; 14 tablet; Refills: 0, Product [facility] Selection Permitted - Flagyl 500 mg Oral Tablet - take 1 tablet ORAL route every 6 hours for 10 days; 40 tablet; Refills: 0, [facility] Product Selection Permitted - Cipro 500 mg Oral tablet - take 1 tablet ORAL route every 12 hours for 10 days; 20 tablet; Refills: 0, [facility] Product Selection Permitted - dicyclomine 20 mg Oral tablet - take 1 tablet ORAL route 4 times per day; 28 tablet; Refills: 0, Product [facility] Selection Permitted Signatures: Dispatcher [employer] EDMS Todd Wood MD MD cha Sims, Lauren, RN RN ld1 Richy Cornelius, RN RN rs5 Huma Wright, RN RN ar6 Corrections: (The following items were deleted from the chart) 11:59 11:59 BASIC METABOLIC PANEL+C.LAB.BRZ ordered. EDMS EDMS 11:59 11:59 CBC+H.LAB.BRZ ordered. EDMS EDMS 11:59 11:59 HEPATIC FUNCTION+C.LAB.BRZ ordered. EDMS EDMS 11:59 11:59 MAGNESIUM+C.LAB.BRZ ordered. EDMS EDMS 11:59 11:59 PROBNP+C.LAB.BRZ ordered. EDMS EDMS 11:59 11:59 PROTIME (+INR)+COAG.LAB.BRZ ordered. EDMS EDMS 11:59 11:59 Troponin High Sensitivity+C.LAB.BRZ ordered. EDMS EDMS 11:59 11:59 LIPASE+C.LAB.BRZ ordered. EDMS EDMS 11:59 11:59 Urinalysis+U.LAB.BRZ ordered. EDMS EDMS 11:59 11:59 Chest Single View+RAD.RAD.BRZ ordered. EDMS EDMS 11:59 11:59 Abdomen Pelvis W Con+CT.RAD.BRZ ordered. EDMS EDMS 12:38 12:12 Allergies: No Known Allergies; rs5 rs5 12:38 12:12 PMHx: Parkinson's disease; rs5 rs5 12:38 12:12 PSHx: None; rs5 rs5 12:38 12:12 Immunization history: Adult Immunizations up to date, rs5 rs5 12:38 12:12 Infectious Disease History: Denies. rs5 rs5 12:38 12:12 Social history: Smoking status: Patient denies any tobacco usage or history of. rs5 rs5
[2023-11-11] MEDS ORDERED: CEFTRIAXONE 2000 MG/VIAL ONE (16:07)
[2023-11-11] MEDS ORDERED: METRONIDAZOLE 500mg IVPB 500 MG/100 ML BAG IV ONE (16:07)
[2023-11-11] MEDS ORDERED: CIPROFLOXACIN 400mg IV 400 MG/200 ML BAG IV ONE (16:07)
[2023-11-11 19:08] VITALS: TEMP 98.1
[2023-11-11 19:11] VITALS: O2SAT 100
[2023-11-11 19:14] VITALS: BP 138/66
--- NOTE | 2023-11-14 17:09 | EKG ---
Test Date: 2023-11-11 Test Time: 13:36:31 Materials Planning Manager: DAVID MEASUREMENT RESULTS: Intervals: Rate: 58 DC: 198 QRSD: 118 QT: 422 QTc: 414 [place]: P: 73 DC: 198 QRS: -70 T: 60 INTERPRETIVE STATEMENTS: Sinus bradycardia with sinus arrhythmia Left axis deviation Abnormal ECG Compared to ECG 12/13/2009 14:56:45 Left-axis deviation now present Sinus rhythm no longer present Left anterior fascicular block no longer present Electronically Signed On 11-14-23 17:01:29 CDT by Ole Brandt
== END 2023-11-11 18:37 | disposition home or self-care (01) ==
LOC: ER 11:51
DX: K63.89 Other specified diseases of intestine (principal); R93.5 Abnormal findings on diagnostic imaging of other abdominal regions, including retroperitoneum
CPT/HCPCS: 96365; 96367; 96361; 96368; 93005; 85025; 81001; 80048; 36415; 83735; 85610; 80076; 84484; 83690; 83880; 74177; 71045; 99284; Q9967; J3010; J2405; J0696; J0744; J7040; J7030

== ENCOUNTER 2023-12-17 13:13 | Emergency (ER) | payer OTHER ==
--- OUTSIDE RECORDS SUMMARY | 2023-12-17 13:15 | XMS REPORT | Continuity of Care Document ---
Author Name Unknown Address [address] [facility] [address] [place] [address] [facility] Address [address] [facility] [address] [place] [address] Care Team Providers Care Education And Training Manager Name Role Phone Unavailable Unavailable Unavailable Problems Condition Name Condition Details Condition Category Status Onset Date Resolution Date Last Treatment Date Treating Clinician Comments Source [id number] ED (erectile dysfunctio n) of organic origin Problem [facility] [id number] Simple renal cyst Problem [facility] Social History Social Habit Start Date Stop Date Quantity Comments Source History of Tobacco Use [facility] Sex Assigned At [facility] Smoking Status Start Date Stop Date Source Never Smoker [facility] Medications Ordered Medication Name Filled Medication Name Start Date Stop Date Current Medication? Ordering Clinician Indication Dosage Frequency Signature (SIG) Comments Components Source Tadalafil 20 MG Tadalafil 20 MG 07-14 00:00: 00 No Tadalafil 20 MG Vital Signs Vital Name Observation Time Observation Value Comments S ource weight 2022-07-14 08:45:00 174.4 [lb_av] Co mmon [facility] temperature 2022-07-14 08:45:00 97.4 [degF] Com mon [facility] bmi 2022-07-14 08:45:00 25.75 kg/m2 Comm on [facility] oximetry 2022-07-14 08:45:00 99 % Commo n [facility] respiratory rate 2022-07-14 08:45:00 18 /min [facility] blood pressure systolic 2022-07-14 08:45:00 126 mm[Hg] [facility] blood pressure diastolic 2022-07-14 08:45:00 68 mm[Hg] [facility] height 2022-07-14 08:45:00 69 [in_i] Commo n [facility] Procedures Procedure Date / Time Performed Performing Clinicia n Source PVR 2022-07-14 00:00:00 [facility] S pirit [facility] Encounters Start Date/Time End Date/Time Encounter Type Admission Type Attending [facility] Care Department Encounter ID Source 2023-02-21 06:37:00 Outpatient [facility] [id number] [facility] 2022-07-14 08:11:01 Outpatient [facility]MLC STL[facility]C [id number] [facility] 2022-07-14 00:00:00 2022-07-14 00:00:00 OFFICE VISIT NEW PT LEVEL 3 [facility]LMLC STLMLC [id number] [facility]
--- NOTE | 2023-12-17 13:36 | EDPHYS ---
Physician Documentation [facility] Name: Nile Vazquez Age: 83 yrs Sex: Male : 1940 Arrival Date: 12/17/2023 Time: 13:13 Bed 12 Private MD: ED Physician London Grant HPI: 12/16 13:34 This 83 yrs old Male presents to ER via Unassigned with complaints of Dog Bite. 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 . Historical: - Allergies: 13:29 No Known Allergies; aa5 - PMHx: 13:29 None; aa5 - Immunization history:: Last tetanus immunization: unknown. - Infectious Disease History:: Denies. - Social history:: Smoking status: Patient denies any tobacco usage or history of. ROS: 13:31 Constitutional: As per HPI kb Exam: 13:31 Constitutional: This is a well developed, well nourished patient who is awake, alert, kb and in no acute distress. Head/Face: Normocephalic, atraumatic. ENT: Moist Mucous membranes Cardiovascular: Regular rate Respiratory: Respirations even and unlabored. No increased work of breathing. Talking in full sentences Abdomen/GI: Soft, non-tender. No distention MS/ Extremity: Pulses equal, no cyanosis. Neurovascular intact. Full, normal range of motion. Neuro: Awake and alert, GCS 15, oriented to person, place, time, and situation. Moves all extremities. Normal gait. 13:31 Skin: injury, bite(s), superficial, of the left low back, Vital Signs: 13:30 BP 148 / 75; Pulse 83; Resp 18 S; Temp 97.5(TE); Pulse Ox 99% on R/A; Weight 77.11 kg aa5 (R); Height 5 ft. 9 in. (R); 13:30 Body Mass Index 25.10 (77.11 kg, 175.26 cm) aa5 MDM: 13:31 Patient medically screened. kb 13:32 Differential diagnosis: superficial laceration, cellulitis. Data reviewed: vital signs, kb nurses notes. Historians other than the Patient: Spouse/Significant Other: . Counseling: I had a detailed discussion with the patient and/or guardian regarding the historical points, exam findings, and any diagnostic results supporting the discharge/admit diagnosis, the need for outpatient follow up, a family practitioner, to return to the emergency department if symptoms worsen or persist or if there are any questions or concerns that arise at home. 12/16 13:34 Order name: Wound Care; Complete Time: 13:54 kb Administered Medications: 13:48 Drug: Boostrix Tdap IM 0.5 ml IM once; as a single dose Route: IM; Site: right deltoid; ll1 14:05 Follow up: Response: No adverse reaction ll1 Disposition Summary: 12/17/23 13:36 Discharge Ordered Notes: Location: Home kb Condition: Stable kb Diagnosis - Bitten by dog kb Followup: kb - With: Emergency Department - When: As needed - Reason: Worsening of condition Followup: kb - With: Private Physician - When: 2 - 3 days - Reason: Recheck today's complaints, Continuance of care, Re-evaluation by your physician Discharge Instructions: - Discharge Summary Sheet kb - Animal Bite, Adult, [id number] kb Forms: - Medication Reconciliation Form kb - Antibiotic Education kb - Prescription Opioid Use kb - Patient Portal Instructions kb - Leadership Thank You Letter kb Addendum: 12/19/2023 09:19 I was immediately available for consultation during this patient's visit. I did not e c2 personally see the patient or discuss the patient with the TOMI. . Signatures: Mandy Green, SALUD-C STUDENT-Concha Smallwood, RN RN aa5 Pham Benites RN RN ll1 London Grant MD MD ec2
--- NOTE | 2023-12-17 13:36 | ER ---
Nurse's Notes [facility] Name: Nile Vazquez Age: 83 yrs Sex: Male : 1940 Arrival Date: 12/17/2023 Time: 13:13 Bed 12 Private MD: Diagnosis: Bitten by dog Presentation: 12/16 13:30 Chief complaint: Patient states: bit by neighbor's dog to left lower back. aa5 13:30 Method Of Arrival: Ambulatory aa5 13:30 Coronavirus screen: At this time, the client does not indicate any symptoms associated aa5 with coronavirus-19. Ebola Screen: Patient denies travel to an Ebola-affected area in the 21 days before illness onset. Initial Sepsis Screen: Does the patient meet any 2 criteria? No. Patient's initial sepsis screen is negative. Does the patient have a suspected source of infection? No. Patient's initial sepsis screen is negative. Risk Assessment: Do you want to hurt yourself or someone else? Patient reports no desire to harm self or others. Onset of symptoms was December 17, 2023. 13:30 Acuity: PREET 4 aa5 Triage Assessment: 14:05 Bite description: bite sustained to left low back is from animal, by a dog, animal ll1 information: vaccination(s) is unknown. General: Appears in no apparent distress. Historical: - Allergies: 13:29 No Known Allergies; aa5 - PMHx: 13:29 None; aa5 - Immunization history:: Last tetanus immunization: unknown. - Infectious Disease History:: Denies. - Social history:: Smoking status: Patient denies any tobacco usage or history of. Screenin:05 [facility] ED Fall Risk Assessment (Adult) History of falling in the last 3 months, ll1 including since admission No falls in past 3 months (0 pts) Confusion or Disorientation No (0 pts) Intoxicated or Sedated No (0 pts) Impaired Gait No (0 pts) Mobility Assist Device Used No (0 pt) Altered Elimination No (0 pt) Score/Fall Risk Level 0 - 2 = Low Risk Maintained a safe environment, Hourly rounding (assess needs \T\ fall precautionary measures) done. Abuse screen: Denies threats or abuse. Nutritional screening: No deficits noted. Tuberculosis screening: No symptoms or risk factors identified. Assessment: 13:46 General: Appears in no apparent distress. Behavior is calm, cooperative, appropriate ll1 for age. Pain: Complains of pain in left low back Quality of pain is described as aching. Derm: dog bite L flank/back area Reports dog bite to L flank/back. 14:06 Derm: Skin is intact, Skin is pink, warm \T\ dry. ll1 Vital Signs: 13:30 BP 148 / 75; Pulse 83; Resp 18 S; Temp 97.5(TE); Pulse Ox 99% on R/A; Weight 77.11 kg aa5 (R); Height 5 ft. 9 in. (R); 13:30 Body Mass Index 25.10 (77.11 kg, 175.26 cm) aa5 ED Course: 13:21 Patient arrived in ED. sj2 13:22 [facility] Green [facility] kb 13:22 London Grant MD is Attending Physician. kb 13:29 Arm band placed on. aa5 13:30 Already reported to . ll1 13:35 Triage completed. aa5 13:50 Patient did not have IV access during this emergency room visit. Wound care: to dog ll1 bite to L lower back located on left low back was cleaned with Hibiclens, Patient tolerated well. 14:00 Provided Education on: clean wound with antibacterial soap and water. Return to ED for ll1 s/s of infection. 14:05 No provider procedures requiring assistance completed. ll1 14:07 Patient has correct armband on for positive identification. ll1 Administered Medications: 13:48 Drug: Boostrix Tdap IM 0.5 ml IM once; as a single dose Route: IM; Site: right deltoid; ll1 14:05 Follow up: Response: No adverse reaction ll1 Medication: 14:06 Vaccine Information Statement (VIS) provided today. Questions and/or concerns ll1 addressed. VIS edition date: October 10, 2020. Outcome: 13:36 Discharge ordered by . kb 14:06 Discharged to home ambulatory, ll1 14:06 Condition: stable 14:06 Discharge instructions given to patient, family, Instructed on discharge instructions, follow up and referral plans. wound care, Demonstrated understanding of instructions, follow-up care, wound care, 14:07 Patient left the ED. ll1 Signatures: Mandy Green FNP-C FNP-Concha Smallwood, RN RN aa5 Pham Benites RN RN ll1 Julia Erazo 2 Corrections: (The following items were deleted from the chart) 13:35 13:30 BP 148 / 75; Pulse 83bpm; Resp 18bpm; Spontaneous; Pulse Ox 99% RA; Temp 97.5F aa5 Temporal; aa5
[2023-12-17] MEDS ORDERED: TDAP (DIPHTH,PERTUSS(ACELL),TET VAC) 0.5 ML VIAL IMVAC ONE (13:40)
[2023-12-17 15:35] VITALS: BP 148/75; TEMP 97.5; O2SAT 99
== END 2023-12-17 14:07 | disposition home or self-care (01) ==
LOC: ER 13:13
DX: S30.870A Other superficial bite of lower back and pelvis, initial encounter (principal); W54.0XXA Bitten by dog, initial encounter
CPT/HCPCS: 96372; 99284